=== PATIENT | male | born 2005 | race African-American/Black ===

== ENCOUNTER 2025-05-09 10:47 | Emergency (ER) | payer OTHER ==
[~2025-05-09] VITALS: Ht 172.7 cm; Wt 118.0 kg
[~2025-05-09 10:47] MED LIST: DOXY100T2 MT
[2025-05-09 10:56] VITALS: O2SAT 98
[2025-05-09] MEDS ORDERED: ERYT1OIN6 EACHEYE (11:10)
[2025-05-09 11:33] VITALS: BP 116/64; PULSE 65; RESP 18; TEMP 36.8; O2SAT 99
== END 2025-05-09 11:34 | disposition home or self-care (01) ==
LOC: ER 10:47
DX: H10.89 Other conjunctivitis (principal)
CPT/HCPCS: 99283